=== PATIENT | male | born 1935 | race Caucasian/White ===

== ENCOUNTER 2018-11-26 10:54 | Emergency (ER) | payer SELFPAY ==
[~2018-11-26] VITALS: Ht 170.2 cm; Wt 70.0 kg
[2018-11-26] MEDS ORDERED: FURO20TA4 PO (11:07)
[2018-11-26] MEDS ORDERED: LEVO25TA7 PO (11:07)
[2018-11-26] MEDS ORDERED: METO-396 PO (11:07)
[2018-11-26] MEDS ORDERED: LOSA25TA12 PO (11:07)
[2018-11-26] MEDS ORDERED: ACETAMINOPHEN 325MG TABLET PO ONE (12:30)
[2018-11-26 16:25] VITALS: BP 124/72
== END 2018-11-26 16:40 | disposition home or self-care (01) ==
LOC: ER 11:49
DX: M54.5 Low back pain (principal); G89.29 Other chronic pain; I11.0 Hypertensive heart disease with heart failure; I50.9 Heart failure, unspecified; E03.9 Hypothyroidism, unspecified; W06.XXXA Fall from bed, initial encounter; Y93.89 Activity, other specified; Y92.122 Bedroom in nursing home as the place of occurrence of the external cause
CPT/HCPCS: 72100; 72170; 82962; 99283

== ENCOUNTER 2021-09-15 00:11 | Emergency (ER) | payer MEDICARE ==
[~2021-09-15] VITALS: Ht 172.7 cm; Wt 82.0 kg
[~2021-09-15 00:11] MED LIST: FURO20TA4 PO; LEVO25TA7 PO; LOSA25TA26 PO; METO-396 PO
[2021-09-15] MEDS ORDERED: TETANUS, DIPHTHERIA, PERTUSSIS VAC/PF 0.5ML (>10YR OLD) IM ONE (00:30)
[2021-09-15] MEDS ORDERED: DIPH103G TP (03:45)
[2021-09-15 04:01] VITALS: BP 140/78
== END 2021-09-15 04:02 | disposition home or self-care (01) ==
LOC: ER 00:11
DX: L29.8 Other pruritus (principal); R21 Rash and other nonspecific skin eruption; I11.0 Hypertensive heart disease with heart failure; E03.9 Hypothyroidism, unspecified
CPT/HCPCS: 90471; 90715; 93970; 99284